=== PATIENT | female | born 1955 | race Hispanic/Latino ===

== ENCOUNTER 2020-03-21 08:30 | Outpatient (CLI) | payer MEDICARE ==
--- NOTE | 2020-03-21 10:00 | Ultrasound Report ---
ULTRASOUND ABDOMEN, COMPLETE INDICATION: LIVER DISORDER SPECIFIED. COMPARISON: No relevant prior imaging study available. FINDINGS: Pancreas: No significant abnormality. Abdominal Aorta: No significant abnormality. IVC: No significant abnormality. Liver: Normal in size, measuring 16 cm in length, with generalized increased echotexture. No addition al significant abnormality. Gallbladder: No significant abnormality. Bile ducts: No significant abnormality. Common bile duct measures 3.0 mm. Kidneys: Right: No significant abnormality. Left : No significant abnormality. Spleen: No significant abnormality. Free fluid: None. Additional Findings: None. IMPRESSION: Increased hepatic echotexture is most commonly seen in the setting of steatosis. Please correlate wit h the clinical findings. Signer Name: Nicolas Pool MD Signed: 03/21/2020 9:55 AM Workstation Name: [employer]
== END 2020-03-21 08:31 | disposition home or self-care (01) ==
LOC: US 08:30
PROVIDERS: ATTEND Internal Medicine Gastroenterology
DX: K76.0 Fatty (change of) liver, not elsewhere classified (principal)
CPT/HCPCS: 76700